=== PATIENT | female | born 1945 | race Caucasian/White ===

== ENCOUNTER 2023-02-04 19:43 | Inpatient (IN) | payer MEDICARE ==
[~2023-02-04] VITALS: Ht 162.6 cm; Wt 110.6 kg
[2023-02-04 21:25] LABS: BASO # 0.1 10^3/uL (0.0-0.2); BASO % 0.7 % (0.0-1.0); EOS % 0.5 % (0.0-3.0); HEMATOCRIT 46.1 % (36.0-47.0); HEMOGLOBIN 15.3 g/dl (12.0-15.5); LYMPH # 1.8 10^3/uL (1.5-5.0); LYMPH % 21.1 % (24.0-44.0); MEAN CORPUSCULAR HEMOGLOBIN 31.2 pg (27.0-33.0); MEAN CORPUSCULAR HGB CONC 33.2 g/dl (32.0-36.5); MEAN CORPUSCULAR VOLUME 94.1 fl (80.0-96.0); MONO # 0.7 10^3/uL (0.0-0.8); MONO % 8.3 % (2.0-8.0); NEUTROPHILS % 69.3 % (36.0-66.0); PLATELET COUNT, AUTOMATED 261 10^3/uL (150-450); WHITE BLOOD COUNT 8.7 10^3/uL (4.0-10.0)
[2023-02-04 21:37] LABS: INR 0.9; PROTHROMBIN TIME 12.3 SECONDS (12.5-14.5)
[2023-02-04 21:38] LABS: PARTIAL THROMBOPLASTIN TIME 30.7 SECONDS (24.8-34.2)
[2023-02-04 21:49] LABS: CK-MB VALUE MASS 1.6 NG/ML (<3.6)
[2023-02-04 21:50] LABS: BLOOD UREA NITROGEN 14 MG/DL (9-23); CALCIUM LEVEL 9.2 MG/DL (8.3-10.6); CARBON DIOXIDE LEVEL 28 MMOL/L (20-31); CHLORIDE LEVEL 108 MMOL/L (98-107); CREATININE FOR GFR 0.64 MG/DL (0.55-1.30); GLOMERULAR FILTRATION RATE > 60.0 (>39); GLUCOSE, FASTING 130 MG/DL (74-106); POTASSIUM SERUM 5.3 MMOL/L (3.5-5.1); SODIUM LEVEL 140 MMOL/L (136-145)
[2023-02-04 21:52] LABS: CPK CREATINE PHOSPHOKINASE 110 U/L (34-145); MB/CK RELATIVE INDEX 1.45 (< OR =4)
[2023-02-04 22:20] LABS: RSV AMPLIFICATION NEGATIVE (NEGATIVE)
[2023-02-05] VITALS (8 sets, daily range): BP systolic 138–174; BP diastolic 62–84; TEMP 97–98.9; O2SAT 93–97
[2023-02-05] MEDS ORDERED: ASPIRIN 81MG CHEW TABLET PO ONE ×2 (00:55→03:00)
[2023-02-05] MEDS ORDERED: ATIV1TAB10 PO (01:50)
[2023-02-05] MEDS ORDERED: ENAL1TAB50 PO (01:50)
[2023-02-05] MEDS ORDERED: METO1TAB33 PO (01:50)
[2023-02-05] MEDS ORDERED: ROSU10TA6 PO (01:50)
[2023-02-05] MEDS ORDERED: AMLO1TAB25 PO (01:50)
[2023-02-05] MEDS ORDERED: TRAM50TA2 PO (01:50)
[2023-02-05] MEDS ORDERED: HOME MED LIST COMPLETE! XX SCH (01:50)
[2023-02-05] MEDS ORDERED: MAALOX 30 ML SUSP *UDC PO ONE (03:00)
[2023-02-05] MEDS: ATORVASTATIN 20 MG TAB PO SCH ×2 (04:17→20:31)
[2023-02-05 05:55] LABS: ALBUMIN 3.6 G/DL (3.2-5.2); ALKALINE PHOSPHATASE 86 U/L (46-116); ALT/SGPT 24 U/L (7.0-40); AST/SGOT 23 U/L (<34); BILIRUBIN,TOTAL 0.9 MG/DL (0.3-1.2); BLOOD UREA NITROGEN 11 MG/DL (9-23); CALCIUM LEVEL 9.4 MG/DL (8.3-10.6); CARBON DIOXIDE LEVEL 29 MMOL/L (20-31); CHLORIDE LEVEL 109 MMOL/L (98-107); CHOLESTEROL LEVEL 155 MG/DL (<200); CHOLESTEROL RISK RATIO 2.54 (<5); CREATININE FOR GFR 0.52 MG/DL (0.55-1.30); GLOMERULAR FILTRATION RATE > 60.0 (>39); GLUCOSE, FASTING 111 MG/DL (74-106); HDL CHOLESTEROL 60.8 MG/DL (>40); LDL CHOLESTEROL 78.4 MG/DL (<100); NON-HDL-C 94.2 MG/DL; POTASSIUM SERUM 4.4 MMOL/L (3.5-5.1); SODIUM LEVEL 141 MMOL/L (136-145); TOTAL PROTEIN 6.3 G/DL (5.7-8.2); TRIGLYCERIDES LEVEL 79 MG/DL (<150)
[2023-02-05 05:57] LABS: THYROID STIMULATING HORMONE 0.956 uIU/ML (0.55-4.78)
[2023-02-05] MEDS: ASPIRIN 81MG CHEW TABLET PO SCH (08:10)
[2023-02-05] MEDS: HEPARIN SOD (PORCINE) 5000UNITS/ML 1ML VIAL/SYRINGE SQ SCH ×2 (08:10→20:31)
[2023-02-05] MEDS ORDERED: ISOVUE-370 76% 100ML VIAL As Ordered ONE (12:44)
[2023-02-05] MEDS ORDERED: LORazepam 0.5 MG TAB PO PRN (13:20)
[2023-02-05] MEDS: traMADol 50 MG TAB PO PRN ×2 (14:25→23:03)
[2023-02-06 04:00] VITALS: BP 140/90; TEMP 96.5; O2SAT 95
[2023-02-06 06:28] LABS: BASO # 0.1 10^3/uL (0.0-0.2); EOS # 0.1 10^3/uL (0.0-0.5); EOS % 1.4 % (0.0-3.0); HEMOGLOBIN 14.8 g/dl (12.0-15.5); LYMPH # 2.5 10^3/uL (1.5-5.0); LYMPH % 42.7 % (24.0-44.0); MEAN CORPUSCULAR HEMOGLOBIN 30.8 pg (27.0-33.0); MEAN CORPUSCULAR HGB CONC 32.2 g/dl (32.0-36.5); MEAN CORPUSCULAR VOLUME 95.6 fl (80.0-96.0); MONO # 0.6 10^3/uL (0.0-0.8); MONO % 10.7 % (2.0-8.0); NEUTROPHILS # 2.6 10^3/uL (1.5-8.5); PLATELET COUNT, AUTOMATED 223 10^3/uL (150-450); RED BLOOD COUNT 4.81 10^6/uL (4.00-5.40); WHITE BLOOD COUNT 5.9 10^3/uL (4.0-10.0)
[2023-02-06 06:57] LABS: BLOOD UREA NITROGEN 12 MG/DL (9-23); CARBON DIOXIDE LEVEL 27 MMOL/L (20-31); CHLORIDE LEVEL 104 MMOL/L (98-107); CREATININE FOR GFR 0.66 MG/DL (0.55-1.30); GLOMERULAR FILTRATION RATE > 60.0 (>39); GLUCOSE, FASTING 111 MG/DL (74-106); MAGNESIUM LEVEL 2.1 MG/DL (1.8-2.4); POTASSIUM SERUM 4.4 MMOL/L (3.5-5.1); SODIUM LEVEL 139 MMOL/L (136-145)
[2023-02-06 07:37] VITALS: BP 145/70; TEMP 97.6; O2SAT 94
[2023-02-06] MEDS: ASPIRIN 81MG CHEW TABLET PO SCH (08:41)
[2023-02-06] MEDS: HEPARIN SOD (PORCINE) 5000UNITS/ML 1ML VIAL/SYRINGE SQ SCH (08:41)
[2023-02-06] MEDS ORDERED: amLODIPine 5 MG TAB PO SCH (09:00)
[2023-02-06] MEDS ORDERED: METOPROLOL SUCC (TopROL XL) 100MG *XL* TAB PO SCH (09:00)
[2023-02-06] MEDS: traMADol 50 MG TAB PO PRN (09:27)
[2023-02-06 11:03] VITALS: BP 134/78
[2023-02-06] MEDS ORDERED: ATOR80TA59 PO (11:12)
[2023-02-06] MEDS ORDERED: ASPI81CH8 PO (11:12)
[2023-02-06 12:00] VITALS: BP 138/70; TEMP 97.6; O2SAT 96
== END 2023-02-06 14:56 | disposition home health service (06) | DRG 65 ==
LOC: M ED 19:43 → M ED INP 19:44 → M ICU 02-05 03:29 → OBSVTOIN 02-05 08:31 → M PCU 02-05 17:50
PROVIDERS: ADMIT Internal Medicine; ATTEND Internal Medicine
PROC: B246ZZZ Ultrasonography of Right and Left Heart (ICD-10-PCS; principal; 2023-02-06)
DX: I63.512 Cerebral infarction due to unspecified occlusion or stenosis of left middle cerebral artery (principal); I69.351 Hemiplegia and hemiparesis following cerebral infarction affecting right dominant side; I48.91 Unspecified atrial fibrillation; R53.1 Weakness; I10 Essential (primary) hypertension; I72.5 Aneurysm of other precerebral arteries; E78.00 Pure hypercholesterolemia, unspecified; R47.81 Slurred speech; Z66 Do not resuscitate; Z79.82 Long term (current) use of aspirin; Z79.899 Other long term (current) drug therapy; Z88.0 Allergy status to penicillin; Z20.822 Contact with and (suspected) exposure to COVID-19; Z90.79 Acquired absence of other genital organ(s)